=== PATIENT | male | born 1985 | race Caucasian/White ===

== ENCOUNTER 2018-04-09 07:36 | Emergency (ER) | payer MEDICAID, OTHER ==
[2018-04-09 08:35] LABS: ANION GAP 15 (8-16); BLOOD UREA NITROGEN 9 mg/dl (7-20); CALCIUM 9.8 mg/dl (8.4-10.2); CARBON DIOXIDE 31 mmol/L (21-31); CHLORIDE 106 mmol/L (97-110); CREATININE 0.96 mg/dl (0.61-1.24); GLUCOSE 106 mg/dl (70-220); POTASSIUM 4.2 mmol/L (3.5-5.1); SODIUM 148 mmol/L (135-144)
[2018-04-09] MEDS: SOD CHLORIDE 0.9% 100 ML (09:29)
[2018-04-09] MEDS: IOHEXOL 300MG/ML 150 ML BTL (09:29)
== END 2018-04-09 10:14 | disposition home or self-care (01) ==
LOC: E/R 07:36
DX: L03.311 Cellulitis of abdominal wall (principal); R40.2142 Coma scale, eyes open, spontaneous, at arrival to emergency department; R40.2252 Coma scale, best verbal response, oriented, at arrival to emergency department; R40.2362 Coma scale, best motor response, obeys commands, at arrival to emergency department
CPT/HCPCS: 74177; 80048; 99285-25